=== PATIENT | female | born 1980 | race Caucasian/White ===

== ENCOUNTER 2019-10-26 05:39 | Day surgery (SDC) | payer OTHER ==
[2019-10-26] MEDS ORDERED: ULTRACET PO (11:30)
[2019-10-26] MEDS ORDERED: NEURONTIN600 M1 PO (11:30)
[2019-10-26] MEDS ORDERED: COLACE100 MG PO (11:31)
== END 2019-10-26 14:10 | disposition home or self-care (01) ==
LOC: CIR.AMB 05:39
DX: K43.2 Incisional hernia without obstruction or gangrene (principal)

== ENCOUNTER 2019-10-29 22:07 | Emergency (ER) | payer OTHER ==
[~2019-10-29] VITALS: Ht 152.4 cm; Wt 59.9 kg
[~2019-10-29 22:07] MED LIST: COLACE100 MG PO; NEURONTIN600 M1 PO; ULTRACET PO
[2019-10-30] MEDS ORDERED: LEVSIN/SL0.125 MG SL (01:25)
== END 2019-10-30 01:41 | disposition home or self-care (01) ==
LOC: ER 22:07
DX: K29.60 Other gastritis without bleeding (principal)